=== PATIENT | female | born 1990 | race Two or more races ===

== ENCOUNTER 2021-12-14 15:15 | Outpatient (CLI) | payer OTHER, SELFPAY ==
--- NOTE | ~2021-12-14 | US_ITS ---
EXAMINATION: US OB follow up DATE: 12/14/2021 15:59 INDICATION: Estimated size less than expected for estimated gestational age during third trimester pr egnancy. TECHNIQUE: Real-time ultrasound of the pelvis was performed. The interpreting radiologist was not pre sent for the study. COMPARISON: None. FINDINGS: There is a single living fetus in vertex presentation. The placenta is posterior. heart rate i s 147 beats per minute (bpm). The amniotic fluid index is 10.6 cm, which is normal. Normal cervical length of 4.8 cm. The following biometric data were obtained: BPD: 7.8 cm -> 31 weeks 4 days Head circumference: 28.3 cm -> 31 weeks 0 days Abdominal circumference: 27.4 cm -> 31 weeks 4 days Femur length: 6.1 cm -> 31 weeks 3 days These measurements are concordant. Head circumference to abdominal circumference ratio: 1.03 (normal range 0.96-1.16). Estimated weight: 1768 g (+/-) 265 g or 3 lbs. 14 oz. (+/-) 9 oz. IMPRESSION: 1. Single living fetus in vertex presentation with heart rate of 147 bpm. 2. Normal amniotic fluid index of 10.6 cm. 3. Estimated weight is 53rd percentile by Hadlock criteria when 02/15/2022 is used as the estim ated date of delivery (ROMULO). Please correlate with clinical information or earlier ultrasounds for mo st accurate ROMULO. Reviewed, dictated and finalized at location A. IMPRESSION: 1. Single living fetus in vertex presentation with heart rate of 147 bpm. 2. Normal amniotic fluid index of 10.6 cm. 3. Estimated weight is 53rd percentile by Hadlock criteria when 2 is used as the estimated date of delivery (ROMULO). Please correlate with clinic al information or earlier ultrasounds for most accurate ROMULO.
== END 2021-12-14 15:16 | disposition home or self-care (01) ==
PROVIDERS: Visit Provider Obstetrics & Gynecology Gynecology
DX: O36.5930 Maternal care for other known or suspected poor fetal growth, third trimester, not applicable or unspecified (principal); Z3A.00 Weeks of gestation of pregnancy not specified
CPT/HCPCS: 76816

== ENCOUNTER 2022-01-17 16:26 | Outpatient (CLI) | payer OTHER, SELFPAY ==
--- NOTE | ~2022-01-17 | US_ITS ---
EXAMINATION: US OB follow up DATE: 01/17/2022 17:23 INDICATION: Size less than dates during third trimester TECHNIQUE: Real-time ultrasound of the pelvis was performed. The interpreting radiologist was not pre sent for the study. COMPARISON: 12/14/2021 FINDINGS: There is a single living fetus in vertex presentation. The placenta is posterior/fundal. Fe karen cardiac activity and movement are noted. heart rate is 141 beats per minute (bpm). Th e amniotic fluid index is 8.8 cm which is normal (normal range: 7.9 cm to 24.9 cm). The following biometric data were obtained: Biparietal diameter (BPD): 8.9 cm; head circumference (HC): 31.4 cm; abdominal circumference (AC): 30 .8 cm; femur length (FL): 6.9 cm. These measurements are concordant. Estimated weight is 2629 g +/- 394 g, which correlates with the 33rd percentile when 02/15/2022 is used as estimated date of delivery. As single measurements, these parameters are each equal to the following estimated gestational ages w ith ranges of +/- 2 standard deviations: BPD: 35 weeks 6 days +/- 3 weeks 1 days. HC: 35 weeks 2 days +/- 3 weeks 0 days. AC: 34 weeks 5 days +/- 3 weeks 0 days. FL: 35 weeks 6 days +/- 3 weeks 0 days. estimated gestational age based solely on measurements from this exam is 35 weeks 3 days +/- 2 weeks 3 days. IMPRESSION: 1. Single living fetus in vertex presentation. 2. Normal amniotic fluid index. 3. Estimated weight is 2629 g +/- 394 g, which correlates with the 33rd percentile when 022 is used as estimated date of delivery. Reviewed, dictated and finalized at location B. IMPRESSION: 1. Single living fetus in vertex presentation. 2. Normal amniotic fluid index. 3. Estimated weight is 2629 g +/- 394 g, which correlates with the 33rd p ercentile when 02/15/2022 is used as estimated date of delivery.
== END 2022-01-17 16:27 | disposition home or self-care (01) ==
LOC: ANHIMG 16:27
PROVIDERS: Visit Provider Obstetrics & Gynecology Gynecology
DX: O36.5930 Maternal care for other known or suspected poor fetal growth, third trimester, not applicable or unspecified (principal); Z3A.35 35 weeks gestation of pregnancy
CPT/HCPCS: 76816

== ENCOUNTER 2022-02-05 17:52 | Outpatient (RCR) | payer OTHER, SELFPAY ==
[2022-01-24 09:55] VITALS: BP 110/76; PULSE 99
== END 2022-03-02 07:41 | disposition home or self-care (01) ==
LOC: ANHOBOP 17:52
PROVIDERS: Visit Provider Obstetrics & Gynecology Gynecology
DX: O36.8130 Decreased fetal movements, third trimester, not applicable or unspecified (principal); Z3A.36 36 weeks gestation of pregnancy
CPT/HCPCS: 59025

== ENCOUNTER 2022-02-13 05:12 | Inpatient (IN) | payer OTHER, SELFPAY ==
[2022-02-13] VITALS (145 sets, daily range): BP systolic 85–145; BP diastolic 51–122; PULSE 51–157; RESP 18–20; TEMP 36.7–37.1; O2SAT 74–100; BMI 27.9
--- NOTE | 2022-02-13 05:44 | LDADM ---
This patient, Torri Becerra, was admitted to Labor/Delivery/Recovery 105 on 02/13/22 at 05:12. Plans for labor, pain management and were discussed with patient. Patient/family oriented to hospital policies and general routines including ID bracelet, bed and alarms, visiting hours, pain management, procedures, bathroom and other care routines, personal items, smoking policy, room service/diet and guest tray routines, infant security routines, and visiting hours. Patient/Family are encouraged to report perceived risks to care and to ask questions if they do not understand what they are told or what they should do. See OBIX for further documentation.
[2022-02-13 06:07] LABS: Basophils Percent Auto 0.3 % (0.2-1.2); Eosinophils Absolute Auto 0.2 K/mm3 (0-0.3); Eosinophils Percent Auto 1.7 % (0-4.4); Hematocrit 36.6 % (37.0-47.0); Hemoglobin 11.9 g/dL (12.0-15.0); Immature Granulocyte Absolute 0.09 K/mm3 (0.00-0.031); Immature Granulocyte Percent A 0.8 % (0-0.5); Lymphocytes Absolute Auto 2.76 K/mm3 (0.9-3.2); Lymphocytes Percent Auto 23.2 % (18.3-44.2); Mean Corpuscular HGB Conc 32.5 g/dl (32-36); Mean Corpuscular Hemoglobin 28.4 pg (26-34); Mean Corpuscular Volume 87.4 fl (80-100); Mean Platelet Volume 9.2 fl (7.4-10.4); Monocytes Absolute Auto 0.6 K/mm3 (0.1-0.6); Monocytes Percent Auto 5.1 % (2.6-8.5); Neutrophils Absolute Auto 8.2 K/mm3 (1.3-6.7); Neutrophils Percent Auto 68.9 % (45.5-73.1); Platelet Count Result 286 k/mm3 (150-375); Red Blood Count 4.19 M/mm3 (4.2-5.4); Red Cell Distribution Width 14.6 % (11.5-14.5); White Blood Count 11.9 K/mm3 (4.5-10.0)
[2022-02-13] MEDS: LACTATED RINGERS 1,000 ML 125 ML IV CONT ×2 (06:36→09:27)
[2022-02-13] MEDS: OXYTOCIN 30 UNITS/NS 500 ML 30 UNITS/500 ML BAG 6 UNITS IV CONT (06:36)
--- NOTE | 2022-02-13 07:53 | WPDOBADMIT ---
Obstetrics - Admit Note Admission Note: record reviewed. No pertinent additions to the history and/or any subsequent changes in the physical findings that are not consistent with the expected course of the were found. Additions to the history and/or subsequent changes in the physical findings follow. Here for MIL at 39 wks. 4/100/-1 AROM with clear fluid. FHTs reactive.
--- NOTE | 2022-02-13 09:28 | WPDANESEPPF ---
Anes - Initial Pre Proc Eval Date/Time: 02/13/22 09:28 Surgeon: Jimena Coy MD Pre Op Diagnosis: IOL Patient Data Age: 31 Gender: F Height: 1.6 m Weight: 71.5 kg Last Vital Signs Temp 36.7 C 02/13/22 08:24 Pulse 75 02/13/22 09:16 BP 109/63 02/13/22 09:16 O2 Del Method Room Air 02/13/22 05:43 Allergies Allergy/AdvReac Type Severity Reaction Status Date / Time latex Allergy Rash Verified 01/17/22 15:39 Home Medications Medication Instructions Recorded Confirmed Type levothyroxine 50 mcg tablet 50 mcg PO DAILY 01/17/22 01/17/22 History (Synthroid) prenat.vits,keo,khw-shaz-quzzu 1 tablet PO HS 01/17/22 01/17/22 History Laboratory Tests 02/13/22 02/13/22 02/13/22 05:23 05:23 05:23 WBC 11.9 K/mm3 H K/mm3 (4.5-10.0) RBC 4.19 M/mm3 L M/mm3 (4.2-5.4) Hgb 11.9 g/dL L g/dL (12.0-15.0) Hct 36.6 % L % (37.0-47.0) MCV 87.4 fl fl (80-100) MCH 28.4 pg pg (26-34) MCHC 32.5 g/dl g/dl (32-36) RDW 14.6 % H % (11.5-14.5) Plt Count 286 k/mm3 k/mm3 (150-375) MPV 9.2 fl fl (7.4-10.4) Immature Gran % (Auto) 0.8 % H % (0-0.5) Neut % (Auto) 68.9 % % (45.5-73.1) Lymph % (Auto) 23.2 % % (18.3-44.2) [place] % (Auto) 5.1 % % (2.6-8.5) Eos % (Auto) 1.7 % % (0-4.4) Baso % (Auto) 0.3 % % (0.2-1.2) Lymph # (Auto) 2.76 K/mm3 K/mm3 (0.9-3.2) [place] # (Auto) 0.6 K/mm3 K/mm3 (0.1-0.6) Eos # (Auto) 0.2 K/mm3 K/mm3 (0-0.3) Baso # (Auto) 0.0 K/mm3 K/mm3 (0.0-0.1) Abs Immat Gran (auto) 0.09 K/mm3 H K/mm3 (0.00-0.031) Absolute Neuts (auto) 8.2 K/mm3 H K/mm3 (1.3-6.7) Absolute Nucleated RBC 0.0 K/mm3 K/mm3 (0.0-0.012) Nucleated RBC % 0.0 % % (0.0-0.2) RPR Pending Blood Type O Positive Antibody Screen Negative Patient hx anesthesia problems: none Family hx anesthesia problems: none Results Review: All pre-operative results and documents have been reviewed as part of the pre-operative evaluation. [facility] Family History Family History (Updated 01/17/22 @ 15:42 by Ericka Loredo RN) Father Brain tumor Sibling Asthma Social History Social History Smoking status: Never smoker Second hand tobacco smoke exposure: No Substance use: never Lack of Transportation: No Lack of Food: Never True Current Housing: I Have Housing Concerned About Future Housing: No Difficulty Paying Gas/Electric Bills: No Difficulty Paying for Meds: No Currently Unemployed: No Education: Master's Degree or Higher Difficulty w/ Childcare or Family Care: No Spiritual care concerns: No Anes - Eval Final PreProcedure Day of Procedure 02/13/22 09:28 Patient weight: overweight Heart: regular rate and rhythm Lungs: clear to auscultation and normal air movement Airway: Mallampati scale class II Neurological: alert and oriented Last oral intake: >/= 8 hours ASA classification: II Emergent: no Anesthetic plan: proceed Anesthesia type and monitoring: regional epidural Results Review: All pre-operative results and documents have been reviewed as part of the pre-operative evaluation. Informed Consent: The patient's anesthetic plan and its attendant risks and benefits were discussed with the patient/family/POA. Questions were solicited and answers provided to the satisfaction of the patient/family/POA.
[2022-02-13 10:19] LABS: Rapid Plasma Reagin Non-Reactive (NonReactive)
--- NOTE | 2022-02-13 15:57 | PM.OBPRVD ---
OB - Delivery Note Procedure Delivery date: 02/13/22 Procedure: Induction method: AROM and Per Pitocin Protocol Delivery monitor: External FHT and External Uterine Route of delivery: Laceration Description: Perineal - 2nd Degree Delivery repair: vicryl (3-0) Specimen: No Quantitative Blood Loss (ml): 500 Anesthesia type: Epidural Disposition: Floor [place] Baby Date of : 02/13/22 Weeks of gestation at delivery: 39 Infant gender: Female presentation: vertex position: Right Occiput Anterior Placenta delivery description: Manual Removal Cord Vessel Description: 3 Vessels and Delayed Cord Clamping score one minute: 9 score five minutes: 9
--- NOTE | 2022-02-13 15:58 | PM.OBDSVD ---
DS: Admitting Diagnosis Discharge Date 02/15/22 Admitting Diagnosis IUP 39 wks for medically indicated induction of labor DS: Discharge Diagnosis Discharge Diagnosis (1) (normal spontaneous vaginal delivery): Code(s): O80 - Encounter for full-term uncomplicated delivery Status: Acute OB - DS: Summary OB Procedures : Ultrasound OB Procedures Intrapartum: Spontaneous Vag Delivery OB Procedures: : None Peripartum Data Delivery Method: Natural Vaginal Laceration Description: Perineal - 2nd Degree complications: none Status at Discharge Functional status at discharge: independent ambulation Overall status at discharge: patient is progressing back to baseline Time Spent with Patient Time attestation: Total time spent providing and/or coordinating discharge services: DS: Data Data Completed and Pending Labs on day of discharge: Labs from last 24 hours 02/13/22 02/13/22 02/13/22 05:23 05:23 05:23 WBC 11.9 H RBC 4.19 L Hgb 11.9 L Hct 36.6 L MCV 87.4 MCH 28.4 MCHC 32.5 RDW 14.6 H Plt Count 286 MPV 9.2 Immature Gran % (Auto) 0.8 H Neut % (Auto) 68.9 Lymph % (Auto) 23.2 [place] % (Auto) 5.1 Eos % (Auto) 1.7 Baso % (Auto) 0.3 Lymph # (Auto) 2.76 [place] # (Auto) 0.6 Eos # (Auto) 0.2 Baso # (Auto) 0.0 Abs Immat Gran (auto) 0.09 H Absolute Neuts (auto) 8.2 H Absolute Nucleated RBC 0.0 Nucleated RBC % 0.0 RPR Non-reactive Blood Type O Positive Antibody Screen Negative Discharge Plan Discharge Attending physician on discharge: Jimena Coy Discharging Clinician: Jimena Coy Anticipated Discharge Date/Time: 02/15/22 15:59 Patient Disposition: Home, Self-Care Activity: may shower, may drive after 2 weeks and pelvic rest Diet: regular Patient Instructions: Antibiotic Form Stand Alone Forms: General Discharge Information Follow-up/Referrals: Jimena Coy MD [Physician] - 6 Weeks Discharge Medications: New docusate sodium [Colace] 100 mg capsule 100 mg PO BID Qty: 60 0RF Continued levothyroxine [Synthroid] 50 mcg Tablet 50 mcg PO DAILY #2 Tablet 1 tablet PO HS Date of admission: 02/13/22 05:12 Primary Care Provider: PHYSICIAN,ROADS AND PARKING LOTS SWEEPER OPERATOR Admitting Provider: Jimena Coy Attending physician on admission: Jimena Coy Condition: Stable
[2022-02-13] MEDS: IBUPROFEN 600 MG TABLET PO (16:35)
--- NOTE | 2022-02-13 19:42 | PC.NURSE ---
Patient transferred to post room #292 per wheelchair from labor and delivery. Support person present. Oriented to unit, room, information board, rooming in, admission packet and security measures. Patient verbalizes understanding.
[2022-02-13] MEDS: ACETAMINOPHEN 325 MG TABLET 650 MG PO (21:02)
[2022-02-14] MEDS: IBUPROFEN 600 MG TABLET PO ×3 (01:17→12:47)
[2022-02-14 04:20] VITALS: BP 90/53; PULSE 72; RESP 16; TEMP 36.3
[2022-02-14 05:53] LABS: Hematocrit 30.2 % (37.0-47.0); Hemoglobin 9.6 g/dL (12.0-15.0)
--- NOTE | 2022-02-14 06:36 | PM.OBPNVD ---
OB - PN: Subj Subjective Date/time seen: 02/14/22 06:36 Patient comments: pain well controlled, tolerating diet and other (c/o dizziness) baby status: nursing well OB - PN: Obj Data Labs CBC & Chem 7: 02/14/22 04:22 Labs: Laboratory Results - last 24 hr 02/13/22 02/13/22 02/14/22 05:23 05:23 04:22 Hgb 9.6 L Hct 30.2 L RPR Non-reactive Blood Type O Positive Antibody Screen Negative OB - PN A/P Plan day: 1 Plan: routine care Time Spent With Patient Time: Total time spent is greater than 50% in coordination of care (as documented) at patient's floor/unit and/or counseling patient: Exam : Bimanual exam- vagina & uterus: other (Uterus firm, nt @U)
[2022-02-14] MEDS: WITCH HAZEL 40 PADS 1 PAD TOPICAL ×2 (07:28→16:35)
[2022-02-14] MEDS: BENZOCAINE 20% AER SPR (*SP) 56 GM CAN 1 SPRAY TOPICAL (07:28)
[2022-02-14] MEDS: LEVOTHYROXINE SODIUM 50 MCG TABLET PO (07:29)
[2022-02-14 08:35] VITALS: BP 105/68; PULSE 88; RESP 18; TEMP 37.1; O2SAT 100
--- NOTE | 2022-02-14 10:50 | P.PNAN_ITS ---
Anes-Prog Note L&D Date/Time: 02/14/22 10:50 Comfortable throughout: labor and delivery Neuraxial method: epidural Epidural/Spinal procedure site: clean & non-tender Neuro status: Neuro function grossly intact. patient complaining of inability to feel bladder and/or fullness. Patient leg function and other neuro is totally intact. Site was clean and no sign of bruising and was soft to touch. Has sensation in vaginal and buttocks area. Educated that we will f/u after the [address] Victoria talked to patient 30 min after [employer] and patient said issues were resolved. will f/u tomorrow. Cardiovascular status: normal Respiratory status: normal Airway patency: baseline Mental status: baseline Post-Op hydration status: normal Vital Signs: Last Vital Signs Temp 37.1 C 02/14/22 08:35 Pulse 88 02/14/22 08:35 Resp 18 02/14/22 08:35 BP 105/68 02/14/22 08:35 Pulse Ox 100 02/14/22 08:35 O2 Del Method Room Air 02/13/22 05:43 Pain score (VAS): 3 I/O: Intake & Output 02/13/22 02/14/22 02/14/22 23:59 07:59 15:59 Intake Total 1500 Output Total 600 Balance 900 Patient feedback: Patient satisfied with anesthetic care.
[2022-02-14 11:38] VITALS: BP 95/60; PULSE 72; RESP 16; TEMP 36.4; O2SAT 100
[2022-02-14] MEDS: HYDROCORTISONE 1% 30 GM CREAM 1 APPLIC TOPICAL (12:00)
[2022-02-14] MEDS: MULTIVIT/MIN/PREN/FOL AC/IRON TABLET 1 TAB PO (12:09)
[2022-02-14] MEDS: POLYSACCHARIDE IRON COMPLEX 150 MG CAPSULE PO ×2 (12:09→16:35)
[2022-02-14] MEDS: DOCUSATE SODIUM 100 MG CAPSULE PO (16:35)
--- NOTE | 2022-02-14 16:56 | PC.NURSE ---
0964 - Introduction was made and mother states now is not a good time. Mother called for RN while assisting another patient. [phone] Consulted with parents regarding assisting with to breastfeed. Mother works well with her with encouragement and education. Encouraged understanding of the benefits of skin to skin (unwrapping and placing vertically on her chest), responsive feeding and how to watch for early feeding signs, frequency of feeding on demand about every 8-12 times in 24 hours (every 2-3 hours), milk production, duration of feeding, signs of adequate intake/output and how to record on the feeding sheet. Reviewed positioning and ear, shoulder, hip alignment, supporting the breast, asymmetrical latch (off-center), and leading with the chin with a big open side gape. latched optimally to the left breast in cross cradle position. Discussed and encouraged practicing other positioning as long as latches well with big, wide open gape and there is no pain. Education given to parents of how to visualize suck/swallow ratios and listen for drinking at the breast. was able to maintain latch without discomfort to mother. Nipple care reviewed with optimal latch and good positioning. Resources used to facilitate learning were used with the visual handouts, tool, mom and baby guide. Resources provided for inpatient and outpatient services using mom/baby guide. Mother voiced understanding of responsive feedings if it has been 2 -3 hours since the start of the last , to call if infant does not latch or there is discomfort with . Reported to the primary RN.
[2022-02-14 20:00] VITALS: BP 103/70; PULSE 87; RESP 18; TEMP 36.6
[2022-02-15] MEDS: IBUPROFEN 600 MG TABLET PO (00:47)
[2022-02-15] MEDS: LEVOTHYROXINE SODIUM 50 MCG TABLET PO (07:20)
[2022-02-15 07:35] VITALS: BP 99/57; PULSE 60; RESP 16; TEMP 37.4; O2SAT 100
--- NOTE | 2022-02-15 07:44 | P.PNOB_ITS ---
OB - PN: Subj Subjective Date/time seen: 02/15/22 07:44 Patient comments: pain well controlled and other (concerned about lack of bladder control) [place] baby status: doing well OB - PN: Obj Data Labs CBC & Chem 7: 02/14/22 04:22 OB - PN A/P Plan day: 2 Plan: routine care, discharge home, follow up 6 weeks and other (unsure bc) Time Spent With Patient Time: Total time spent is greater than 50% in coordination of care (as documented) at patient's floor/unit and/or counseling patient: Exam : Bimanual exam- vagina & uterus: other (Uterus firm, nt @U)
[2022-02-15] MEDS: ACETAMINOPHEN 325 MG TABLET 650 MG PO (09:53)
[2022-02-15] MEDS: DOCUSATE SODIUM 100 MG CAPSULE PO (12:30)
[2022-02-15] MEDS: MULTIVIT/MIN/PREN/FOL AC/IRON TABLET 1 TAB PO (12:30)
[2022-02-15] MEDS: POLYSACCHARIDE IRON COMPLEX 150 MG CAPSULE PO (12:30)
--- NOTE | 2022-02-15 13:56 | PC.NURSE ---
[id number] Consulted with mother for questions. Last night the mother chose to have the bottle fed throughout the night. Mother states she felt like pumping was a waste of time because she isn't producing anything . Reviewed colostrum is from hormones, now we need to stimulate the breast with or pumping consistently for the supply and demand to encourage a good milk production. Reviewed with the parents feeding choice. Mother states the pairer odds recommended 20-40mls of formula. We discussed the difference of a formula fed infant vs an infant that is effectively breastfeed consistently every 2-3 hours may take 15-20mls. Discussed the hypothyroidism and how it may or may not effect the milk production. Encouraged mother to consistently pump her breast 8 times in 24 hours with 1-2 times at night if infant is not latching or infant is receiving a bottle. Volumes will increase as infants needs increase. Feeding infant a large amount of formula may decrease infant's assertiveness at the breast or desire to breastfeed. Different feeding options were discussed and parents were encouraged to make an informed decision on how they choose to feed their infant. Reported to primary RN.
--- NOTE | 2022-02-15 14:13 | PC.NURSE ---
1409 - Consulted with parents to see if they had any questions, concerns or needed any information clarified. There are no additional questions at this time.
[2022-02-16 10:49] VITALS: BP 105/66; PULSE 75; RESP 16; TEMP 36.6; O2SAT 100
== END 2022-02-15 14:30 | disposition home or self-care (01) | DRG 807 ==
LOC: ANHLDR 16:00 → ANHOB2 19:49
PROVIDERS: Advanced Practice Midwife; Admitting Provider Obstetrics & Gynecology Gynecology; Visit Provider Obstetrics & Gynecology Gynecology
DX: O70.1 Second degree perineal laceration during delivery (principal); Z37.0 Single live birth; Z3A.39 39 weeks gestation of pregnancy
CPT/HCPCS: 36415; 85014; 85018; 85025; 86592; 86850; 86900; 86901; A9270; J2590; J2795; J7120

== ENCOUNTER → 2022-12-27 14:51 | Outpatient (CLI) | payer OTHER, SELFPAY ==
--- NOTE | ~2022-12-27 | US_ITS ---
EXAMINATION: US OB <= 14 weeks fetus DATE: 12/27/2022 15:12 INDICATION: . Uncertain dates. TECHNIQUE: Real-time transabdominal pelvic ultrasound was performed. COMPARISON: None. FINDINGS: The uterus measures 10.4 x 6.5 x 5.1 cm. There is an intrauterine gestational sac. The crown ru mp length measures 2.0 cm, which correlates with an estimated gestational age of 8 weeks and 4 day(s) (+/-) 5 day(s). heart motion is identified measuring 178 beats per minute (bpm) by M-mode Dopp ler. The right ovary is not visualized. The left ovary measures 3.0 x 2.7 x 1.9 cm. There is no free fluid in the pelvis. IMPRESSION: 1. Single living intrauterine gestation with estimated date of delivery of 08/04/2023. Reviewed, dictated and finalized at location E. IMPRESSION: 1. Single living intrauterine gestation with estimated date of delivery of 08/03.
== END ==
PROVIDERS: PCP Family Medicine; Visit Provider Obstetrics & Gynecology
DX: Z34.91 Encounter for supervision of normal pregnancy, unspecified, first trimester (principal)
CPT/HCPCS: 76801

== ENCOUNTER 2023-03-01 15:45 | Outpatient (RCR) | payer OTHER, SELFPAY ==
--- NOTE | 2023-01-31 09:54 | OPREHPOC ---
Outpatient Therapy Plan of Care This is a Multidisciplinary Plan of Care that may contain components documented by all disciplines (PT, OT, and ST.) PT Problem 1 PT Problem #1 Knowledge Deficit PT Goal 1 Goal 1. Patient will perform independent HEP Target Visit 5 PT Problem 2 PT Problem #2 Impaired Strength PT Goal 1 Goal 1. Patient will demo pelvic floor strength at least 4/5 and endurance at least 10 seconds to decrease incontinence Target Visit 5 PT Goal 1 Goal 1. Patient will be able to do all normal activities including caring for her child with no more than 2 instances of incontinence per week Target Visit 5
--- NOTE | 2023-01-31 09:54 | PTOPEVAL1 ---
Assessment and note entered by Yaima Sim DPT Evaluation Information Assessment Status Evaluation Subjective Information Pt reports she had a baby last January and feels like she lost all bladder control. Resolved somewhat and tried PT elsewhere for awhile. Is still getting stress incontinence with coughing, sneezing, laughing, lifting, walking uphill. Has to change clothes often and feels very frustrated. Is also again, approximately 12 weeks. Urinates 5-6 times a day, sometimes back to back, and none at night. Can hold urine up to 20 minutes . Incontinence multiple times a day, variable amounts depending on activity. Wakes with wet underwear, cannot wear pads due to skin irritation . Denies pain with urination. BM every day, no pain, no fecal incontinence. Pt has been twice, vaginal delivery with second degree tear. Was then diagnosed with a UTI after the delivery. Previous pain with intercourse, pain with tampon and unable to use but reports she has not had any after delivery. Pt reports a lot of frustration and feels she has trouble going out in the community, lifting her baby, is always aware of where the bathroom is. Patient goal: be more functional in life, avoid prolapse, strengthen pelvic floor Reported Pain Level Pain Score 0: Self Report Assessment PT Clinical Summary The patient is presenting to skilled therapy with a history of daily urinary incontinence since delivering her first child in January 2022. She presents with decreased LE strength and likely decreased pelvic floor strength and endurance ( will fully assess next visit with permission from OB-STAFFING MANAGER) which are contributing to her daily incontinence. She is approximately 12 weeks . She will highly benefit from therapy to address her impairments in order to reduce incontinence as her progresses. Plan of Care Interventions Electrical Stimulation,Manual Therapy,Neuro Re- education,Patient/Caregiver Education,Therapeutic Activities,Therapeutic Exercise PT Services Indicated Yes Treatment Frequency and 1 time a week for 4 weeks Duration These treatments will address the objective and functional deficits as defined above. The patient will be advanced safely and appropriately in order for the patient to progress towards his/her prior level of function. Additional exercises
--- NOTE | 2023-02-15 13:03 | PCPTNOTE ---
Patient cancelled appointment on 02/15/23 due to illness.
--- NOTE | 2023-03-01 16:23 | OPREHPOC ---
Outpatient Therapy Plan of Care This is a Multidisciplinary Plan of Care that may contain components documented by all disciplines (PT, OT, and ST.) PT Problem 1 PT Problem #1 Knowledge Deficit PT Goal 1 Goal 1. Patient will perform independent HEP Target Visit 5 Progress Partially Met PT Problem 2 PT Problem #2 Impaired Strength PT Goal 1 Goal 1. Patient will demo pelvic floor strength at least 4/5 and endurance at least 10 seconds to decrease incontinence Target Visit 5 Progress Not Met PT Goal 1 Goal 1. Patient will be able to do all normal activities including caring for her child with no more than 2 instances of incontinence per week Target Visit 5 Progress Partially Met
--- NOTE | 2023-03-01 16:23 | PTOPPROG ---
Assessment and note entered by Yaima Sim DPT Evaluation Information Assessment Status Progress Subjective Information Pt reports she thinks her incontinence is happening with coughing, sneezing or other forceful activities. Incontinence is happening 2 times a day and changing underwear 1 time a day. Some improvements with frequency. Assessment PT Clinical Summary The patient is resuming therapy after time off due to illness and traveling. She reports some improvements with the frequency of her incontinence but it is still happening daily. Due to her progress but continued incontinence she will highly benefit from further therapy to improve strength, improve function, and decrease incontinence. Plan of Care Interventions Manual Therapy,Neuro Re-education,Patient/ Caregiver Education,Therapeutic Activities, Therapeutic Exercise PT Services Indicated Yes Treatment Frequency and 1 time a week for 4 visits Duration These treatments will address the objective and functional deficits as defined above. The patient will be advanced safely and appropriately in order for the patient to progress towards his/her prior level of function. Additional exercises will be introduced and as well as a comprehensive home exercise program upon discharge, if needed, ?to ensure carryover of functional gains achieved in the clinic. This treatment plan has been reviewed and agreement upon by the patient.
--- NOTE | 2023-03-07 14:53 | PCPTNOTE ---
Patient called to cancel appointment 03/07/23 due to work conflict.
--- NOTE | 2023-03-14 15:25 | PCPTNOTE ---
Patient called to cancel appointment due to illness.
--- NOTE | 2023-03-22 14:13 | PCPTNOTE ---
Patient called to cancel appointment 03/22/23.
--- NOTE | 2023-04-18 14:20 | PTOPDC ---
Assessment and note entered by Yaima Sim, DPT Evaluation Information Assessment Status Discharge - Pt Not Present Subjective Information - Assessment PT Clinical Summary Patient has not been in therapy since 03/01/23. She will be discharged this date and will need a new script to resume therapy at a later date. Plan of Care PT Services Indicated No
== END 2023-04-18 14:37 | disposition home or self-care (01) ==
LOC: ANHPT 15:45
PROVIDERS: PCP Family Medicine; Visit Provider Family Medicine
DX: M62.89 Other specified disorders of muscle (principal)
CPT/HCPCS: 97112; 97162

== ENCOUNTER 2023-03-21 15:20 | Outpatient (CLI) | payer OTHER, SELFPAY ==
--- NOTE | ~2023-03-21 | US_ITS ---
EXAMINATION: US OB /maternal detail DATE: 03/21/2023 16:45 INDICATION: The second trimester anatomic survey TECHNIQUE: Real-time ultrasound of the pelvis was performed. COMPARISON: None. FINDINGS: There is a single living fetus in vertex presentation. The placenta is anterior and approximately 2 c m from the internal cervical os. The measured cervical length is 4.2 cm. heart rate is 151 beat s per minute (bpm). cardiac activity and movement are noted. The amniotic fluid index is 9.7 cm which is normal (normal range: 9.3 cm to 21.2 cm). The following anatomy was identified as normal: 4 chamber heart 3 vessel cord cord insertion kidneys urinary bladder stomach spine diaphragm ventricles cisterna magna cerebellum The following biometric data were obtained: Biparietal diameter (BPD): 4.4 cm; head circumference (HC): 17.1 cm; abdominal circumference (AC): 14 .6 cm; femur length (FL): 3.3 cm. These measurements are concordant. Estimated weight is 327 g +/- 49 g, which correlates with the 19th percentile when 08/04/2023 is used as estimated date of delivery. As single measurements, these parameters are each equal to the following estimated gestational ages w ith ranges of +/- 2 standard deviations: BPD: 19 weeks 2 days +/- 1 weeks 5 days. HC: 19 weeks 5 days +/- 1 weeks 3 days. AC: 20 weeks 0 days +/- 2 weeks 0 days. FL: 20 weeks 2 days +/- 1 weeks 6 days. estimated gestational age based solely on measurements from this exam is 19 weeks 6 days +/- 1 weeks 3 days. IMPRESSION: 1. Single living fetus in vertex presentation. 2. Estimated weight is 327 g +/- 49 g, which correlates with the 19th percentile when 08/04/2023 is used as estimated date of delivery. 3. Low-lying placenta. Reviewed, dictated and finalized at location B. PUMPER IMPRESSION: 1. Single living fetus in vertex presentation. 2. Estimated weight is 327 g +/- 49 g, which correlates with the 19th per centile when 08/04/2023 is used as estimated date of delivery. 3. Low-lying placenta.
== END 2023-03-21 15:21 | disposition home or self-care (01) ==
PROVIDERS: PCP Family Medicine; Visit Provider Obstetrics & Gynecology
DX: O44.42 Low lying placenta NOS or without hemorrhage, second trimester (principal); Z3A.19 19 weeks gestation of pregnancy
CPT/HCPCS: 76805

== ENCOUNTER 2023-04-18 12:38 | Outpatient (CLI) | payer OTHER, SELFPAY ==
--- NOTE | ~2023-04-18 | US_ITS ---
EXAMINATION: US OB follow up DATE: 04/18/2023 14:03 INDICATION: Low-lying placenta during second trimester TECHNIQUE: Real-time ultrasound of the pelvis was performed. The interpreting radiologist was not pre sent for the study. COMPARISON: 03/21/2023 FINDINGS: There is a single living fetus in breech presentation. The placenta is anterior and 3.1 cm from the internal cervical os. cardiac activity and movement are noted. heart rate is 154 beats per minute (bpm). The amniotic fluid index is subjectively normal. The following biometric data were obtained: Biparietal diameter (BPD): 5.8 cm; head circumference (HC): 21.9 cm; abdominal circumference (AC): 20 .1 cm; femur length (FL): 4.4 cm. These measurements are concordant. Estimated weight is 701 g +/- 105 g, which correlates with the 36th percentile when 08/04/2023 is used as estimated date of delivery. As single measurements, these parameters are each equal to the following estimated gestational ages w ith ranges of +/- 2 standard deviations: BPD: 23 weeks 4 days +/- 1 weeks 5 days. HC: 24 weeks 0 days +/- 1 weeks 3 days. AC: 24 weeks 5 days +/- 2 weeks 1 days. FL: 24 weeks 3 days +/- 2 weeks 1 days. estimated gestational age based solely on measurements from this exam is 24 weeks 1 days +/- 1 weeks 5 days. IMPRESSION: 1. Single living fetus in breech presentation. 2. Estimated weight is 701 g +/- 105 g, which correlates with the 36th percentile when 08/04/2023 is used as estimated date of delivery. 3. Anterior placenta 3.1 cm from the internal cervical os. Reviewed, dictated and finalized at location F. ER SHOP SUPERVISOR IMPRESSION: 1. Single living fetus in breech presentation. 2. Estimated weight is 701 g +/- 105 g, which correlates with the 36th pe rcentile when 08/04/2023 is used as estimated date of delivery. 3. Anterior placenta 3.1 cm from the internal cervical os.
== END 2023-04-18 12:39 | disposition home or self-care (01) ==
LOC: ANHIMG 12:40
PROVIDERS: PCP Family Medicine; Visit Provider Obstetrics & Gynecology
DX: O44.40 Low lying placenta NOS or without hemorrhage, unspecified trimester (principal); Z3A.00 Weeks of gestation of pregnancy not specified
CPT/HCPCS: 76816

== ENCOUNTER 2023-06-06 14:29 | Outpatient (CLI) | payer OTHER, SELFPAY ==
--- NOTE | ~2023-06-06 | US_ITS ---
EXAMINATION: US OB follow up DATE: 06/06/2023 15:32 INDICATION: Encounter for supervision of normal . Third trimester. TECHNIQUE: Real-time ultrasound of the pelvis was performed. COMPARISON: Ultrasound 04/18/2023, 12/27/2022 FINDINGS: There is a single living fetus in vertex presentation. The placenta is anterior. heart rate is 136 beats per minute (bpm). The amniotic fluid volume is subjectively normal. The following biometric data were obtained: Biparietal diameter (BPD): 7.1 cm; head circumference (HC): 27.8 cm; abdominal circumference (AC): 27 .4 cm; femur length (FL): 6.2 cm. These measurements are discordant with high FL/BPD ratio. Estimated weight is 1736 g +/- 260 g, which correlates with the 29th percentile when 08/04/23 is used as estimated date of delivery. As single measurements, these parameters are each equal to the following estimated gestational ages: BPD: 28 weeks 2 days. HC: 30 weeks 3 days. AC: 31 weeks 4 days. FL: 32 weeks 0 days. estimated gestational age based solely on measurements from this exam is 30 weeks 4 days +/- 2 weeks 1 days. IMPRESSION: 1. Single living fetus in vertex presentation. 2. Estimated weight is 1736 g +/- 260 g, which correlates with the 29th percentile when 08/04/23 is used as estimated date of delivery. This date was set by ultrasound on 12/27/2022. 3. Discordant biometrics with high FL/BPD ratio. Reviewed, dictated and finalized at location E. R RELATIONS ANALYST
== END 2023-06-06 14:30 | disposition home or self-care (01) ==
LOC: ANHIMG 14:32
PROVIDERS: Visit Provider Obstetrics & Gynecology
DX: Z34.93 Encounter for supervision of normal pregnancy, unspecified, third trimester (principal); Z3A.30 30 weeks gestation of pregnancy
CPT/HCPCS: 76816

== ENCOUNTER 2023-06-28 16:26 | Outpatient (CLI) | payer OTHER, SELFPAY ==
--- NOTE | ~2023-06-28 | US_ITS ---
EXAMINATION: US OB follow up DATE: 06/28/2023 17:08 INDICATION: Encounter for supervision of normal . Third trimester. TECHNIQUE: Real-time ultrasound of the pelvis was performed. COMPARISON: Ultrasound 06/06/2023, 12/27/2022 FINDINGS: There is a single living fetus in vertex presentation. The placenta is anterior. heart rate is 148 beats per minute (bpm). The amniotic fluid index is 9.3 cm, which is normal. The following biometric data were obtained: Biparietal diameter (BPD): 7.7 cm; head circumference (HC): 29.7 cm; abdominal circumference (AC): 30 .3 cm; femur length (FL): 6.6 cm. These measurements are concordant. Estimated weight is 2254 g +/- 338 g, which correlates with the 19th percentile when 08/04/23 is used as estimated date of delivery. As single measurements, these parameters are each equal to the following estimated gestational ages: BPD: 30 weeks 6 days. HC: 32 weeks 6 days. AC: 34 weeks 1 days. FL: 34 weeks 0 days. estimated gestational age based solely on measurements from this exam is 33 weeks 0 days +/- 2 weeks 2 days. IMPRESSION: 1. Single living fetus in vertex presentation. 2. Estimated weight is 2254 g +/- 338 g, which correlates with the 19th percentile when 08/04/23 is used as estimated date of delivery. This date was set by ultrasound on 12/27/2022. Reviewed, dictated and finalized at location A.
== END 2023-06-28 16:27 | disposition home or self-care (01) ==
LOC: ANHIMG 16:26
PROVIDERS: Visit Provider Student in an Organized Health Care Education/Training Program
DX: Z34.93 Encounter for supervision of normal pregnancy, unspecified, third trimester (principal); Z3A.33 33 weeks gestation of pregnancy
CPT/HCPCS: 76816

== ENCOUNTER 2023-07-18 14:28 | Outpatient (CLI) | payer OTHER, SELFPAY ==
--- NOTE | ~2023-07-18 | US_ITS ---
EXAMINATION: US OB follow up w BPP DATE: 07/18/2023 15:36 INDICATION: Encounter for supervision of normal TECHNIQUE: Real-time pelvic ultrasound was performed. The interpreting radiologist was not present fo r the study. COMPARISON: None. FINDINGS: There is a single living fetus in vertex presentation. The placenta is anterior and not low-lying. F etal heart rate is 135 beats per minute (bpm). Normal amniotic fluid index of 7.9 cm (5th%-95%: 7.5-2 4.4 cm at 37 weeks estimated gestational age) Biophysical profile performed by the technologist: breathing (30 sec sustained breathing in 30 minutes): 2 out of 2 movement (3 gross body movements in 30 minutes): 2 out of 2 tone (one episode of shhyoyk-urtpqpwzi-nwwqudk limb movement): 2 out of 2 Amniotic fluid pocket (2 cm): 2 out of 2 Total score: 8 out of 8 IMPRESSION: 1. Single living fetus in vertex presentation with heart rate of 135 bpm. 2. Biophysical profile 8 out of 8. 3. Normal amniotic fluid index of 7.9 cm. Reviewed, dictated and finalized at location A.
== END 2023-07-18 14:29 | disposition home or self-care (01) ==
LOC: ANHIMG 14:29
PROVIDERS: Visit Provider Obstetrics & Gynecology
DX: Z34.90 Encounter for supervision of normal pregnancy, unspecified, unspecified trimester (principal); Z3A.00 Weeks of gestation of pregnancy not specified
CPT/HCPCS: 76816; 76819

== ENCOUNTER 2023-07-23 16:17 | Outpatient (RCR) | payer OTHER, SELFPAY ==
--- NOTE | ~2023-07-23 | US_ITS ---
EXAMINATION: US OB limited w BPP DATE: 07/23/2023 18:12 INDICATION: BPP RG for [place] . TECHNIQUE: Real-time ultrasound of the pelvis was performed. COMPARISON: 07/20/2023 FINDINGS: There is a single living fetus in vertex presentation, longitudinal lie. The placenta is anterior, w ell distant from the cervix. heart rate is 144 bpm. The amniotic fluid index is 10.31 cm, which is normal (5th to 95th percentile is 7.3 to 23.9 cm). Biophysical profile performed by the technologist: breathing (30 sec sustained breathing in 30 minutes): 2 out of 2. movement (3 gross body movements in 30 minutes: 2 out of 2. tone (one episode of zslceky-xqesexhsy-tdqkkgd limb movement): 2 out of 2. Amniotic fluid pocket (2 cm): 2 out of 2. Total score: 8 out of 8. IMPRESSION: Single living fetus in vertex presentation. Biophysical profile 8 out of 8. Normal RG. Reviewed, dictated and finalized at location K.
[2023-07-23 18:10] VITALS: BP 106/64; PULSE 85
== END 2023-09-16 08:13 | disposition home or self-care (01) ==
LOC: ANHOBOP 16:17
PROVIDERS: Visit Provider Obstetrics & Gynecology
DX: O41.00X0 Oligohydramnios, unspecified trimester, not applicable or unspecified (principal); Z3A.36 36 weeks gestation of pregnancy
CPT/HCPCS: 59025; 76815; 76819

== ENCOUNTER 2023-07-30 06:00 | Inpatient (IN) | payer OTHER, SELFPAY ==
[2023-07-30] VITALS (148 sets, daily range): BP systolic 57–234; BP diastolic 25–173; PULSE 67–149; RESP 18; TEMP 36.6–37.7; O2SAT 72–100; BMI 28.9
--- NOTE | 2023-07-30 06:00 | LDADM ---
This patient, Torri Becerra, was admitted to Labor/Delivery/Recovery 106 on 07/30/23 at 06:00. Plans for labor, pain management and were discussed with patient. Patient/family oriented to hospital policies and general routines including ID bracelet, bed and alarms, visiting hours, pain management, procedures, bathroom and other care routines, personal items, smoking policy, room service/diet and guest tray routines, infant security routines, and visiting hours. Patient/Family are encouraged to report perceived risks to care and to ask questions if they do not understand what they are told or what they should do. See OBIX for further documentation.
[2023-07-30] MEDS: OXYTOCIN 30 UNITS/NS 500 ML 30 UNITS/500 ML BAG IV CONT (06:46)
[2023-07-30] MEDS: LACTATED RINGERS 1,000 ML 125 ML IV CONT ×3 (06:46→12:29)
[2023-07-30 06:51] LABS: Basophils Percent Auto 0.4 % (0.2-1.2); Eosinophils Absolute Auto 0.2 K/mm3 (0-0.3); Eosinophils Percent Auto 2.2 % (0-4.4); Hematocrit 37.6 % (37.0-47.0); Hemoglobin 12.1 g/dL (12.0-15.0); Immature Granulocyte Absolute 0.08 K/mm3 (0.00-0.031); Immature Granulocyte Percent A 0.8 % (0-0.5); Lymphocytes Absolute Auto 2.51 K/mm3 (0.9-3.2); Lymphocytes Percent Auto 24.9 % (18.3-44.2); Mean Corpuscular HGB Conc 32.2 g/dl (32-36); Mean Corpuscular Hemoglobin 28.7 pg (26-34); Mean Corpuscular Volume 89.3 fl (80-100); Mean Platelet Volume 9.2 fl (7.4-10.4); Monocytes Absolute Auto 0.6 K/mm3 (0.1-0.6); Monocytes Percent Auto 6.2 % (2.6-8.5); Neutrophils Absolute Auto 6.6 K/mm3 (1.3-6.7); Neutrophils Percent Auto 65.5 % (45.5-73.1); Platelet Count Result 275 k/mm3 (150-375); Red Blood Count 4.21 M/mm3 (4.2-5.4); White Blood Count 10.1 K/mm3 (4.5-10.0)
--- NOTE | 2023-07-30 07:20 | PM.IMHP ---
H&P: HPI History of Present Illness Date/Time: 07/30/23 07:20 Chief Complaint: Induction of labor Narrative: Torri is a 33yo @ 39.0wks who presents for induction of labor. She has been reporting decreased movement; NST/BPPs have been 01/08. She has had regular growths, but did see MFM for concerns of microcephaly (has normal head measurements). She reports occasional contractions. No VB or LOF. Her is complicated by: - hypothyroidism; Thyroid studies q6w - h/o pelvic floor dysfunction and significant incontinence - short interpregnancy interval; last delivery 02/13/22 Review of Systems Constitutional: Constitutional: Denies chills, Denies fever(s) and Denies headache(s) Eyes: Eyes: Denies change in vision ENT: Denies headache(s) Cardiovascular: Cardiovascular: Denies chest pain and Denies dyspnea Respiratory: Respiratory: Denies dyspnea Genitourinary: Genitourinary: Denies abnormal vaginal bleeding and Denies vaginal discharge Neurologic: Denies headache(s) Psychiatric: Psychiatric: Denies anxiety and Denies depression [facility] Past Medical History Medical History Hypothyroid Family History Family History Father Brain tumor Sibling Asthma Social History Social History Smoking status: Never smoker Second hand tobacco smoke exposure: No Substance use: never Lack of Transportation: No Lack of Food: Never True Current Housing: I Have Housing Concerned About Future Housing: No Difficulty Paying Gas/Electric Bills: No Difficulty Paying for Meds: No Currently Unemployed: No Education: Master's Degree or Higher Difficulty w/ Childcare or Family Care: No Living arrangements: with family 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 Gender identity (if verbalized by the patient): Female Sexual Orientation (if Verbalized by the Patient): Straight or Heterosexual Spiritual care concerns: No Meds Home Medications and Allergies Home Medications Medication Instructions Recorded Confirmed Type prenat.vits,keo,ksj-pnyk-kwybn 1 tablet PO HS 01/17/22 07/25/23 History cholecalciferol (vitamin D3) 1,250 1,250 mcg PO WEEKLY #12 caps 03/19/23 07/25/23 Rx mcg (50,000 unit) capsule levothyroxine 50 mcg tablet 50 mcg PO DAILY #90 tabs 07/01/23 07/25/23 Rx Allergies Allergy/AdvReac Type Severity Reaction Status Date / Time egg Allergy Rash Verified 07/25/23 16:01 latex Allergy Rash Verified 07/25/23 16:01 Exam Const: General: cooperative, healthy appearing, comfortable and no acute distress Orientation/consciousness: patient oriented x3 Resp: Effort & Inspection: normal respiratory effort Cardio: Rate: regular rate GI: GI Palp: No abdominal tenderness : Other: FHT's: 140's/ mod dominique/ + accels/ no decels - cat 1 TOCO: irregular ctxs Cervix: 5/50/-2 Membranes: AROM, clear 0715 (scant amount) Presentation: cephalic Skin: General skin exam: normal color Neuro: General: patient oriented x3 Extrem: General: normal to inspection Psych: Appearance: grossly normal Affect: normal affect Attitude: cooperative Assessment and Plan Assessment and plan (1) Encounter for elective induction of labor: Code(s): Z34.90 - Encounter for supervision of normal , unspecified, unspecified trimester Status: Acute Plan - Admit to L&D for elective IOL - Pitocin per protocol; AROM performed on this exam - Continuous monitoring; currently reassuring - GBS negative - Anesthesia consult PRN pain
--- NOTE | 2023-07-30 08:52 | WPDANESEPPF ---
Anes - Initial Pre Proc Eval Procedure: labor epidural Date/Time: 07/30/23 08:52 Surgeon: Jennifer Arshad MD Pre Op Diagnosis: labor pain Pre Op Diagnosis: IOL Patient Data Age: 33 Gender: F Height: 1.6 m Weight: 74 kg Last Vital Signs Temp 36.8 C 07/30/23 07:23 Pulse 86 07/30/23 08:50 BP 105/67 07/30/23 08:50 Pulse Ox 99 07/30/23 08:48 O2 Del Method Room Air 07/30/23 07:30 Allergies Allergy/AdvReac Type Severity Reaction Status Date / Time egg Allergy Rash Verified 07/25/23 16:01 latex Allergy Rash Verified 07/25/23 16:01 Home Medications Medication Instructions Recorded Confirmed Type prenat.vits,keo,ktp-hcew-cohtj 1 tablet PO HS 01/17/22 07/30/23 History cholecalciferol (vitamin D3) 1,250 1,250 mcg PO WEEKLY #12 caps 03/19/23 07/30/23 Rx mcg (50,000 unit) capsule levothyroxine 50 mcg tablet 50 mcg PO DAILY #90 tabs 07/01/23 07/30/23 Rx Laboratory Tests 07/30/23 06:24 WBC 10.1 H K/mm3 (4.5-10.0) RBC 4.21 M/mm3 (4.2-5.4) Hgb 12.1 g/dL (12.0-15.0) Hct 37.6 % (37.0-47.0) MCV 89.3 fl (80-100) MCH 28.7 pg (26-34) MCHC 32.2 g/dl (32-36) RDW 15.0 H % (11.5-14.5) Plt Count 275 k/mm3 (150-375) MPV 9.2 fl (7.4-10.4) Immature Gran % (Auto) 0.8 H % (0-0.5) Neut % (Auto) 65.5 % (45.5-73.1) Lymph % (Auto) 24.9 % (18.3-44.2) [place] % (Auto) 6.2 % (2.6-8.5) Eos % (Auto) 2.2 % (0-4.4) Baso % (Auto) 0.4 % (0.2-1.2) Lymph # (Auto) 2.51 K/mm3 (0.9-3.2) [place] # (Auto) 0.6 K/mm3 (0.1-0.6) Eos # (Auto) 0.2 K/mm3 (0-0.3) Baso # (Auto) 0.0 K/mm3 (0.0-0.1) Abs Immat Gran (auto) 0.08 H K/mm3 (0.00-0.031) Absolute Neuts (auto) 6.6 K/mm3 (1.3-6.7) Absolute Nucleated RBC 0.000 K/mm3 (0.0-0.012) Nucleated RBC % 0.0 % (0.0-0.2) RPR Pending Blood Type O Positive Antibody Screen Negative Patient hx anesthesia problems: none Family hx anesthesia problems: none Results Review: All pre-operative results and documents have been reviewed as part of the pre-operative evaluation. [facility] Past Medical History Medical History Hypothyroid Family History Family History Father Brain tumor Sibling Asthma Social History Social History Smoking status: Never smoker Second hand tobacco smoke exposure: No Substance use: never Do You Feel Safe in your Home?: Yes Lack of Transportation: No Lack of Food: Never True Current Housing: I Have Housing Concerned About Future Housing: No Difficulty Paying Gas/Electric Bills: No Difficulty Paying for Meds: No Currently Unemployed: No Education: Master's Degree or Higher Difficulty w/ Childcare or Family Care: No Living arrangements: with family 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 Informed Consent: The patient's anesthetic plan and its attendant risks and benefits were discussed with the patient/family/POA. Questions were solicited and answers provided to the satisfaction of the patient/family/POA.
--- NOTE | 2023-07-30 12:27 | PM.OBPNLAB ---
Pain Control Date/time seen: 07/30/23 12:27 Pain control: epidural Pelvic Exam Dilation (cm): 7 Effacement (%): 80 station: -2 Amniotic membrane status: Ruptured Contractions Monitor mode: Internal (placed this exam) Contraction frequency: 3 Contraction intensity: Mild Status status: Category l Assessment and Plan Pitocin rate (mU/min): 10 Assessment: active labor Plan: continuous present management Comments: - will continue increasing pitocin per protocol to obtain adequate contractions
[2023-07-30 12:52] LABS: Rapid Plasma Reagin Non-Reactive (NonReactive)
[2023-07-30] MEDS: miSOPROStol 200 MCG TABLET 800 MCG RECTAL (16:40)
[2023-07-30] MEDS: OXYTOCIN 30 UNITS/NS 500 ML 30 UNITS/500 ML BAG 125 UNITS IV CONT (16:50)
--- NOTE | 2023-07-30 17:03 | PM.OBPRVD ---
OB - Vaginal Delivery Note Procedure Delivery date: 07/30/23 Events: Elective Induction of Labor Induction method: Per Pitocin Protocol Delivery augmentation: Rupture of Membranes Delivery monitor: External FHT and Internal Uterine Route of delivery: Laceration Description: Perineal - 1st Degree Delivery repair: vicryl Specimen: Yes (placenta) Quantitative Blood Loss (ml): 450 Anesthesia type: Epidural Disposition: Floor Complications: No immediate complications [place] Baby Date of : 07/30/23 Time of : 16:22 Weeks of gestation at delivery: 39 Infant gender: Female presentation: vertex Placenta delivery description: Expressed Cord Vessel Description: 3 Vessels and Clamped/Cut (short cord) Narrative: Torri progressed to complete dilation with strong desire to push. She pushed for 1 contraction (3 pushes) and delivered the head over intact perineum. No nuchal cord was palpated. She easily delivered the infant's shoulders and body without complication. The was immediately placed skin to skin and had spontaneous cry. The umbilical cord was noted to be quite short and was doubly clamped and cut so baby could be placed on mom's chest. A segment of the cord was collected for cord gases. The remaining cord blood was collected for typing. With Pitocin running and gentle downward traction on the cord, the placenta delivered without complications. Bimanual massage was performed and slight atony was noted but resolved with massage. She was examined and a first-degree perineal laceration was identified and repaired in the normal fashion using 2-0 Vicryl. The baby was noted to be grunting and was taken over to the warmer by the pediatric team. Bimanual massage was once again performed and atony with a small amount of clots was removed. Uterine sweep did not reveal anything concerning for retained placenta or membranes. She was straight catheterized, and only a small amount of urine was removed. Bimanual massage once again performed and slight atony was noted, but once again resolved with massage. Cytotec 800 mcg was placed rectally while massage was continued. The uterus then remained firm with minimal bleeding from there on out. Sponge, lap, instrument, and needle counts were correct at the end of the procedure. Baby was taken to the nursery for further management. Mom remained in the delivery suite in a stable condition.
--- NOTE | 2023-07-30 17:45 | PC.NURSE ---
Patient states she feels as if her bladder is full and she is leaking urine. Placed on bedpan. Pt states she would like a straight cath Minimal bleeding noted to pad. No bladder distension felt and pt fundus is firm. Pt states she is concerned that bladder will rupture. Bladder scan done and pt had approx 400. cc in bladder. Pt states she will wait until she can ambulate to bathroom and she thinks she will be able to void.
[2023-07-30] MEDS: IBUPROFEN 600 MG TABLET PO (17:55)
[2023-07-30] MEDS: ACETAMINOPHEN 500 MG TABLET 1000 MG PO (19:12)
[2023-07-30] MEDS: WITCH HAZEL 40 PADS 1 PAD TOPICAL (20:49)
[2023-07-30] MEDS: BENZOCAINE 20% AER SPR (*SP) 56 GM CAN 1 SPRAY TOPICAL (20:49)
--- NOTE | 2023-07-30 22:28 | OBPPTRN ---
Patient transferred to post room #282 via wheelchair. Support/spouse present. Oriented to unit, room, information board, rooming in, admission packet and security measures. Patient verbalizes understanding.
[2023-07-31] MEDS: IBUPROFEN 600 MG TABLET PO ×4 (00:12→19:23)
[2023-07-31 04:00] VITALS: BP 94/60; PULSE 64; RESP 18; TEMP 36.8; O2SAT 99
[2023-07-31] MEDS: ACETAMINOPHEN 325 MG TABLET 650 MG PO ×3 (04:01→19:23)
[2023-07-31 06:15] LABS: Hematocrit 37.5 % (37.0-47.0); Hemoglobin 11.9 g/dL (12.0-15.0); Mean Corpuscular HGB Conc 31.7 g/dl (32-36); Mean Corpuscular Hemoglobin 28.9 pg (26-34); Mean Platelet Volume 9.8 fl (7.4-10.4); Platelet Count Result 240 k/mm3 (150-375); Red Blood Count 4.12 M/mm3 (4.2-5.4); Red Cell Distribution Width 14.9 % (11.5-14.5); White Blood Count 15.6 K/mm3 (4.5-10.0)
--- NOTE | 2023-07-31 06:38 | P.PNOB_ITS ---
OB - PN: Subj Subjective Date/time seen: 07/31/23 06:38 Narrative: PPD#1 Torri reports doing well today. 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 Her pain is controlled. She is tolerating regular diet, voiding, passing gas, and ambulating without issues. She is breast feeding and supplementing. OB - PN: Obj Data Labs 07/31/23 04:10 Labs: Laboratory Results - last 24 hr 07/30/23 07/31/23 06:24 04:10 WBC 10.1 H 15.6 H RBC 4.21 4.12 L Hgb 12.1 11.9 L Hct 37.6 37.5 MCV 89.3 91.0 MCH 28.7 28.9 MCHC 32.2 31.7 L RDW 15.0 H 14.9 H Plt Count 275 240 MPV 9.2 9.8 Immature Gran % (Auto) 0.8 H Neut % (Auto) 65.5 Lymph % (Auto) 24.9 [place] % (Auto) 6.2 Eos % (Auto) 2.2 Baso % (Auto) 0.4 Lymph # (Auto) 2.51 [place] # (Auto) 0.6 Eos # (Auto) 0.2 Baso # (Auto) 0.0 Abs Immat Gran (auto) 0.08 H Absolute Neuts (auto) 6.6 Absolute Nucleated RBC 0.000 Nucleated RBC % 0.0 RPR Non-reactive Blood Type O Positive Antibody Screen Negative OB - PN A/P Assessment and Plan (1) Normal vaginal delivery of second : Code(s): O80 - Encounter for full-term uncomplicated delivery Status: Acute Plan day: 1 Plan: routine care Comments: - PO pain meds - Regular diet - Ambulation and hydration encouraged - Continue putting baby to breast q2-3hr Time Spent With Patient Time: Total time spent is greater than 50% in coordination of care (as documented) at patient's floor/unit and/or counseling patient: Review of Systems Constitutional: Constitutional: Denies chills, Denies fever(s) and Denies headache(s) Eyes: Eyes: Denies change in vision ENT: Denies dizziness and Denies headache(s) Cardiovascular: Cardiovascular: Denies chest pain, Denies palpitations and Denies dyspnea Respiratory: Respiratory: Denies cough and Denies dyspnea Gastrointestinal: Gastrointestinal: Denies nausea and Denies vomiting Neurologic: Denies dizziness and Denies headache(s) Endocrine: Endocrine: Denies palpitations Exam Const: General: cooperative, comfortable and no acute distress Orientation/consciousness: patient oriented x3 Resp: Effort & Inspection: normal respiratory effort Auscultation: clear to auscultation bilaterally Cardio: Rate: regular rate GI: Inspection: non-distended GI Palp: No abdominal tenderness and Yes Soft to palpation Auscultation: normal bowel sounds : Other: fundus firm Skin: General skin exam: normal color Neuro: General: patient oriented x3 Extrem: General: normal to inspection Psych: Appearance: grossly normal Affect: normal affect Attitude: cooperative
[2023-07-31] MEDS: MULTIVIT/MIN/PREN/FOL AC/IRON TABLET 1 TAB PO (07:13)
[2023-07-31] MEDS: LEVOTHYROXINE SODIUM 50 MCG TABLET PO (07:14)
[2023-07-31 07:55] VITALS: BP 96/61; PULSE 77; RESP 16; TEMP 36.8; O2SAT 98
--- NOTE | 2023-07-31 09:12 | WPDANLDPN2 ---
Anes-Prog Note L&D Date/Time: 07/31/23 09:12 Neuro status: Neuro function grossly intact. Cardiovascular status: normal Respiratory status: normal Airway patency: baseline Mental status: baseline Post-Op hydration status: normal Vital Signs: Last Vital Signs Temp 36.8 C 07/31/23 04:00 Pulse 64 07/31/23 04:00 Resp 18 07/31/23 04:00 BP 94/60 L 07/31/23 04:00 Pulse Ox 99 07/31/23 04:00 O2 Del Method Room Air 07/30/23 07:30 Pain score (VAS): 0 I/O: Intake & Output 07/30/23 07/31/23 07/31/23 23:59 07:59 15:59 Output Total 450 Balance -450 Post-procedural complaints: none Patient feedback: Patient satisfied with anesthetic care.
[2023-07-31 11:54] VITALS: BP 106/51; PULSE 65; RESP 16; TEMP 36.9; O2SAT 98
--- NOTE | 2023-07-31 13:07 | PC.NURSE ---
[id number] Introductions were made, then consulted with patient to assess needs related to . Discussed with mother her?plans to breastfeed this infant, the?experience so far along with her decision to bottle feed formula bottles last night and how to protect the milk supply with S2S, hand expression and pumping. Resources provided for inpatient and outpatient services with the feeding sheet, mom/baby guide and name written on the communication board. Mother voiced understanding of information and will call if there is a request for assistance. Reported to the Primary RN. [phone] Consulted with patient to assess needs related to . Discussed with mother her successes, concerns and any questions she has. Breast assessment reveals accessory breast tissue on the left side partially in the underarm area. We reviewed working with the , supporting breast, protecting her nipples with an optimal deep latch, good positioning, and good hand washing. Encouraged understanding the benefits of skin to skin, responding to feeding cues, frequencies of feeding 8-12 times in 24 hours (approximately 2-3 hours), duration of feedings, milk production, hand expression, intake/output feeding sheet and signs of adequate intake encouraging swallowing at the breast. Left breast we were able to express breast milk on the right breast we were not. Mother shared that the right breast did not express milk with her last infant in 2021. was spoon fed 1/4 tsp of colostrum, then we reviewed positioning and alignment, supporting breast, off-centered (asymmetrical latch) and leading with the chin with big, open, wide gape. Infant latched optimally to the left breast in football position. Education given to the mother of how to visualize the suckling (with good rocking jaw motion) swallows (dropping of the lower jaw) twice, then infant was not able to maintain latch without discomfort to mother. Nipple care reviewed with optimal latch, good positioning and using clean hands when touching her breast. Nipple was not misshaped, however; there were signs of the beginning of blisters on the tip of the nipple. There is a mismatch between infants mouth and mothers nipple. Resources used to facilitate learning were used from the visual handouts/ tool/mom and baby guide. Mother has decided that she wants to pump and feed this like she did the last one. Mother voiced understanding of the education shared, to call for assistance if the does not latch or if there is discomfort with . Reported to the Primary RN. [id number] Breast pump provided due to ineffective and a decision to pump. Instructions given on cleaning, care, usage, that there should be no pain, pumping schedule for milk production, collection, and storage of human milk. Patient was assessed for correct placement, flange size, to pump for comfort and nipple stretching/stimulation for adequate milk production every 3 hours (8 times in 24 hours) 1-2 times at night. Parents are encouraged to record the pumping schedule on the feeding sheet.?Mother voiced understanding of the education shared along with mom/baby guide and the pump measurement, flange fit (27mm) handout for additional resource information. parent denied pain with pumping. Mother pumped for 1-4 minutes, then took the pump off to go to the restroom. Discussed with father how much bottle had to drink and he shared 1ml. Suggested burping, waking to eat and parent stated that he had tried all of that and the is not interested in eating at this time. Reviewed the signs of adequate intake using the pie demonstration, then reported to the Primary RN.
[2023-07-31 17:00] VITALS: BP 107/70; PULSE 64; RESP 18; TEMP 36.6; O2SAT 100
[2023-07-31 20:30] VITALS: BP 93/59; PULSE 89; RESP 16; TEMP 36.6; O2SAT 100
--- NOTE | 2023-08-01 07:16 | PM.OBDSVD ---
DS: Admitting Diagnosis Discharge Date 08/01/23 Admitting Diagnosis Induction of labor DS: Discharge Diagnosis Discharge Diagnosis (1) Normal vaginal delivery of second : Code(s): O80 - Encounter for full-term uncomplicated delivery Status: Acute OB - DS: Summary OB Procedures : NST and Ultrasound OB Procedures Intrapartum: Spontaneous Vag Delivery OB Procedures: : None Peripartum Data Infant Delivery Method: Natural Vaginal Laceration Description: Perineal - 1st Degree Episiotomy description: None complications: none [place] 1: Gender: Female Disposition of : home Status at Discharge Functional status at discharge: independent ambulation Overall status at discharge: patient is back to baseline Time Spent with Patient Time attestation: Total time spent providing and/or coordinating discharge services: Exam Const: General: cooperative, healthy appearing, comfortable and no acute distress Orientation/consciousness: patient oriented x3 Resp: Effort & Inspection: normal respiratory effort Auscultation: clear to auscultation bilaterally Cardio: Rate: regular rate GI: Inspection: non-distended GI Palp: No abdominal tenderness and Yes Soft to palpation Auscultation: normal bowel sounds : Other: fundus firm Skin: General skin exam: normal color Neuro: General: patient oriented x3 Extrem: General: normal to inspection Psych: Appearance: grossly normal Affect: normal affect Attitude: cooperative DS: Data Data Completed and Pending Pending studies at discharge: Pending at discharge 07/30/23 18:42 Surgical [PTH] Routine Labs on day of discharge: Labs from last 24 hours 07/31/23 04:10 WBC 15.6 H RBC 4.12 L Hgb 11.9 L Hct 37.5 MCV 91.0 MCH 28.9 MCHC 31.7 L RDW 14.9 H Plt Count 240 MPV 9.8 Discharge Plan Discharge Attending physician on discharge: Jennifer Arshad Discharging Clinician: Jennifer Arshad Anticipated Discharge Date/Time: 08/01/23 10:00 Patient Disposition: Home, Self-Care Activity: may shower and pelvic rest Diet: regular Patient Instructions: Vaginal Delivery (DC) Stand Alone Forms: General Discharge Information Follow-up/Referrals: Jennifer Arshad MD [Physician] - 4 Weeks Discharge Medications: New acetaminophen 325 mg Tablet 650 mg PO Q6H PRN (Reason: Mild Pain (1-3) Or Headache) Qty: 60 0RF docusate sodium 100 mg Capsule 100 mg PO BID PRN (Reason: Constipation) Qty: 90 0RF ibuprofen 600 mg Tablet 600 mg PO Q6H PRN (Reason: Cramping) Qty: 60 0RF Continued prenat.vits,keo,[id number] Tablet 1 tablet PO HS cholecalciferol (vitamin D3) 1,250 mcg (50,000 unit) capsule 1,250 mcg PO WEEKLY Qty: 12 0RF levothyroxine 50 mcg tablet 50 mcg PO DAILY Qty: 90 2RF Date of admission: 07/30/23 06:00 Primary Care Provider: PHYSICIAN,ENGINEERING PROJECT MANAGER Admitting Provider: Jennifer Arshad Attending physician on admission: Jennifer Arshad Condition: Stable
[2023-08-01] MEDS: MULTIVIT/MIN/PREN/FOL AC/IRON TABLET 1 TAB PO (07:38)
[2023-08-01] MEDS: ACETAMINOPHEN 325 MG TABLET 650 MG PO ×2 (07:38→12:55)
[2023-08-01] MEDS: LEVOTHYROXINE SODIUM 50 MCG TABLET PO (07:38)
[2023-08-01] MEDS: IBUPROFEN 600 MG TABLET PO ×2 (07:41→12:56)
[2023-08-01 07:50] VITALS: BP 106/62; PULSE 55; RESP 18; TEMP 36.4; O2SAT 99
== END 2023-08-01 18:10 | disposition home or self-care (01) | DRG 807 ==
LOC: ANHLDR 06:03 → ANHOB2 22:37
PROVIDERS: Admitting Provider Obstetrics & Gynecology; Visit Provider Obstetrics & Gynecology
DX: O69.3XX0 Labor and delivery complicated by short cord, not applicable or unspecified (principal); Z37.0 Single live birth; O76 Abnormality in fetal heart rate and rhythm complicating labor and delivery; O99.284 Endocrine, nutritional and metabolic diseases complicating childbirth; E03.9 Hypothyroidism, unspecified; O70.0 First degree perineal laceration during delivery; Z3A.39 39 weeks gestation of pregnancy
CPT/HCPCS: 36415; 85025; 85027; 86592; 86850; 86900; 86901; 88307; A9270; J2590; J2795; J7120